=== PATIENT | female | born 1965 | race Caucasian/White ===

== ENCOUNTER 2022-04-06 07:53 | Emergency (ER) | payer OTHER ==
[2022-04-06 08:47] VITALS: BP 170/92; PULSE 107; RESP 18; TEMP 97.8; BMI 19.4
[2022-04-06] MEDS ORDERED: IBUPROFEN 600 MG TABLET (FP) PO ONE ×3 (10:29→11:59)
== END 2022-04-06 12:52 | disposition home or self-care (01) ==
LOC: JER 07:53
DX: U07.1 COVID-19 (principal)
CPT/HCPCS: 0241U-QW; 99283-25